=== PATIENT | female | born 1980 | race Caucasian/White ===

== ENCOUNTER 2016-11-11 15:04 | Emergency (ER) | payer OTHER ==
--- NOTE | 2016-11-11 16:30 | ED ORDER SUMMARY ---
..... Patient: ANDRZEJ DUMONT OrderSheet [facility] VisitID: [id number] [address] [place] [address] 36y, F Registration Date/Time: 11/11/2016 ORDER SHEET Weight: 81.6 kg Allergies: Erythromycin, Penicillins, Reglan, Sulfa Drugs, Tylenol GENERAL ORDERS: MEDICATION ORDERS: IV FLUIDS: Toradol IV 30 mg (NOW) (15:41 11/11/2016 HBivens A.R.N.P.) (Ack 15:43 KPage-Kuchan R.N.) (15:53 KPage-Kuchan R.N.) Dilaudid IV 2 mg (HIGH ALERT MEDICATION, NOW) (15:41 11/11/2016 HBivens A.R.N.P.) (Ack 15:43 KPage-Kuchan R.N.) (15:53 KPage-Kuchan R.N.) Zofran IV 4 mg (NOW) (15:41 11/11/2016 HBivens A.R.N.P.) (Ack 15:43 KPage-Kuchan R.N.) (15:53 KPage-Kuchan R.N.) ORDER SHEET NOTES: [Electronically signed by Sophie White A.R.N.P. (18:47 11/11/2016)] [Electronically signed by Martha KearneyNJenn (20:41 11/11/2016)] [Electronically locked/signed by Martha Kearney R.N. (20:41 11/11/2016)]
--- NOTE | 2016-11-11 16:30 | ED CLINICAL REPORT ---
Clinical Report - Physicians/Mid Levels [facility] [address] [place] [address] 11/11/2016 15:06 Patient: ANDRZEJ DUMONT Time Seen: 15:24; initial patient contact, initial documentation, patient care assumed. Arrived- By private vehicle. Historian- patient. HISTORY OF PRESENT ILLNESS Chief Complaint: FLANK PAIN. At its maximum, severity described as severe. When seen in the E.D., severity described as severe. Modifying factors. Not worsened by anything. Not relieved by anything. It is described as "pain" and it is described as located in the right flank and the left flank and radiating to the abdomen. This started about 3 days ago and is still present. No nausea, loss of appetite, vomiting or diarrhea. No additional abdominal pain. No recent travel. Similar symptoms previously: Recent medical care: The patient was seen recently in a clinic. ( went to [facility] Saturday, labs and ct done, dx with multiple stones on both sides, given flomax and vicoden, took vicoden and it lowered her pain from 10 to 8, but she is still really hurting so she came here). REVIEW OF SYSTEMS No constipation, black stools, hematemesis, difficulty with urination or pain with urination. No urinary frequency, bloody stools, fever, chest pain or difficulty breathing. Denies current . All systems otherwise negative, except as recorded above. PAST HISTORY See nurses notes. PROBLEMS: Nephrolithiasis. Hypokalemia. Ovarian Cyst. Abdominal Pain. Mechanism of Injury. Lifestyle / Substance Problems. Immunizations. . --15:15 Martha Kearney, R.N. ADDITIONAL SURGERIES: Appendectomy. Dental Surgery. Kidney stents. Lithotripsy. Renal Stone Manipulation. Tonsillectomy. --15:15 Martha Kearney, R.Valentine. SOCIAL HISTORY Light tobacco smoker. History of drug use: narcotics. Is a recovering addict. No alcohol use. No recent travel. Is a local resident. FAMILY HISTORY Negative. ADDITIONAL NOTES The nursing notes have been reviewed with agreement regarding the chief complaint, HPI, ROS, PMH and patient medications and allergies. PHYSICAL EXAM Vital Signs: 11/11/2016 15:11 BP: 123/71. HR: 108. RR: 17. O2 saturation: 100%. Temp: 98.1 F. Pain level now: 12/03. Have been reviewed as abnormal and appear to be correct. Blood pressure normal. Tachycardic. Respiratory rate normal. Temperature normal. Oxygen saturation normal. Appearance: Alert. Oriented X3. No acute distress. Eyes: Pupils equal, round and reactive to light. Eyes normal inspection. Neck: Normal inspection. Neck supple. CVS: Normal heart rate and rhythm. Heart sounds normal. Pulses normal. Respiratory: No respiratory distress. Breath sounds normal. Chest nontender. Abdomen: Soft and nontender. Bowel sounds normal. No organomegaly. No mass. Back: Abnormal inspection. Mild CVA tenderness on the right and left. Skin: Skin warm and dry. Normal skin color. No rash. Normal skin turgor. Extremities: Extremities exhibit normal ROM. No lower extremity edema. Neuro: Oriented X 3. No motor deficit. No sensory deficit. PROGRESS AND PROCEDURES Course of Care: pt pulled up her ct results and chart from [facility] on her phone, tx options discussed, agreed to give pain meds now, change vicoden rx to percocet, pt warned of taking them together, said in past the med that calmed her bladder down and changed her urine dark orange, helped, but they didn't give it to her this time, explained that was same as otc AZO, pt has pending appt tomorrow or next day with Urology, supposed to call clinic in morning for appt pt admits her substance abuse issues were to narcotic pain meds, years ago. Patient counseled in person regarding the patient's stable condition and diagnosis. Differential Diagnosis: Other possible considerations: substance abuse, kidney stones, pyelo, uti, renal disease. Above considerations are based on history and physical exam. Differential diagnosis was discussed with patient. Disposition: Discharged home in good and improved condition (16:07). Condition: good and stable. CLINICAL IMPRESSION Ureterolithiasis (multiple stones) in the right kidney and left kidney with renal colic. No hydronephrosis, acute pyelonephritis, urinary tract infection or hematuria. INSTRUCTIONS Drink plenty of fluids for the next 24 hours until better. (over the counter vitamin c, as discussed). Warnings: CONTROLLED SUBSTANCE WARNINGS: The reason for controlled substance is related to an acute illness. Reviewed the risks and benefits of the medication. Discussed warnings with the patient (Do NOT mix Vicoden with Percocet, as discussed). GENERAL WARNINGS: Return or contact your physician immediately if your condition worsens or changes unexpectedly, if not improving as expected, or if other problems arise. SPECIFICALLY, return if you develop pain in the abdomen or pelvis, fever, the inability to keep fluids down, blood in vomitus, blood in diarrhea, fainting or lightheadedness. Prescription Medications: Zofran 4 mg: Take 1 orally every six hours as needed for nausea/vomiting. Dispense ten (10). No refills. Substitution is permissible. Percocet 5 mg/325 mg: take 1 tablet orally every 6 hours as needed for pain. Dispense fifteen (15). No refills. Substitution is permissible. Toradol 10 mg tablets: Take 1 tablet orally every 6 hours as needed. Dispense fifteen (15). No refills. Substitution is permissible. Pyridium 200 mg: take 1 orally every 8 hours as needed for urinary problems. Dispense six (6). No refills. Substitution is permissible. Follow-up: Follow up with your doctor tomorrow as scheduled even if well. Summary of care provided to patient. Understanding of the discharge instructions verbalized by patient. (Electronically signed by Sophie White A.R.N.P. 11/11/2016 18:47)
--- NOTE | 2016-11-11 16:30 | ED ORDER SUMMARY ---
..... Patient: ANDRZEJ DUMONT OrderSheet [facility] VisitID: [id number] [address] [place] [address] 36y, F Registration Date/Time: 11/11/2016 ORDER SHEET Weight: 81.6 kg Allergies: Erythromycin, Penicillins, Reglan, Sulfa Drugs, Tylenol GENERAL ORDERS: MEDICATION ORDERS: IV FLUIDS: Toradol IV 30 mg (NOW) (15:41 11/11/2016 HBivens A.R.N.P.) (Ack 15:43 KPage-Kuchan R.N.) (15:53 KPage-Kuchan R.N.) Dilaudid IV 2 mg (HIGH ALERT MEDICATION, NOW) (15:41 11/11/2016 HBivens A.R.N.P.) (Ack 15:43 KPage-Kuchan R.N.) (15:53 KPage-Kuchan R.N.) Zofran IV 4 mg (NOW) (15:41 11/11/2016 HBivens A.R.N.P.) (Ack 15:43 KPage-Kuchan R.N.) (15:53 KPage-Kuchan R.N.) ORDER SHEET NOTES: [Electronically signed by Sophie White A.R.N.P. (18:47 11/11/2016)] [Electronically signed by Martha KearneyNJenn (20:41 11/11/2016)] [Electronically locked/signed by Martha Kearney R.N. (20:41 11/11/2016)]
--- NOTE | 2016-11-11 16:30 | ED NURSING NOTES ---
Clinical Report - Nurses [facility] [address] [place] [address] 11/11/2016 15:06 Patient: ANDRZEJ DUMONT TRIAGE Triage time 15:Nov 11 2016. Chief Complaint: (pt with know bilat renal stones,c/o bilat flank pain, left greater than right "cause it comes around to the front" had CT yesterday morning, lab work on saturday, was told to go to ED if pain uncontrollable.). Alert. No acute distress. SEPSIS SCREEN: Sepsis Screen. Negative (no infection suspected/documented). --15:17 Martha Kearney R.N. 15:11 11/11/16. BP: 123/71. HR: 108. RR: 17. O2 saturation: 100%. Temp: 98.1 F. Pain level now: 12/03. --15:17 Martha Kearney R.N. Weight: 81.6 kg. Height/Length: 64 inches. BMI: 30.9. --15:13 Martha Kearney R.N. Medications Flomax Oral. --15:13 Martha Kearney R.N. DULoxetine HCl Oral. --15:14 Martha Kearney R.N. Allergies Erythromycin.(vomiting) Penicillins.(rash) Reglan. (muscle spasms) Sulfa Drugs.(rash, vomiting) Tylenol.(hives) --15:13 Martha Kearney R.N. Medication/allergy information source: the patient. --15:17 Martha Kearney R.N. History Arrived by private vehicle. Historian: patient. Accompanied by family. Primary physician (Dr [facility]). Onset. (symptoms began on saturday). Treatment DIRECTOR OF TECHNOLOGY: Took ibuprofen. (flomax, vicodin). PAST MEDICAL HX: Last normal menstrual period- uterine ablation and tubal ligation. Denies current . SOCIAL HX: Light tobacco smoker (cigarette)- less than 1/2 a pack per day. No alcohol use or drug use. No infectious disease exposure. No known contact with a sick individual. ABUSE ASSESSMENT: No report of abuse. SELF HARM ASSESSMENT: A self harm assessment was performed. The patient answered "no" to the question "Do you have thoughts of harming or killing yourself?". FALL RISK ASSESSMENT: Fall risk assessment completed. No fall risk identified. NUTRITIONAL RISK ASSESSMENT: The nutritional risk assessment revealed no deficiencies. FUNCTIONAL ASSESSMENT: Functional assessment: no impairments noted. LEARNING NEEDS ASSESSMENT: The learning needs assessment revealed no barriers. SKIN INTEGRITY ASSESSMENT: Skin integrity risk assessment completed. No skin integrity risk identified. --15:17 Martha Kearney R.N. PROBLEMS: Nephrolithiasis. Hypokalemia. Ovarian Cyst. Abdominal Pain. Mechanism of Injury. Lifestyle / Substance Problems. Immunizations. . --15:15 Martha Kearney R.N. ADDITIONAL SURGERIES: Appendectomy. Dental Surgery. Kidney stents. Lithotripsy. Renal Stone Manipulation. Tonsillectomy. --15:15 Martha Kearney R.N. Interventions ID band on patient. --15:17 Martha Kearney R.N. PHYSICAL ASSESSMENT Ambulatory to room. Patient gowned. GENERAL / NEURO / PSYCH: Alert. Oriented X 4. Appears in no acute distress. HEENT: Mucous membranes are pink. RESPIRATORY: Respirations not labored. CVS: Capillary refill less than 2 seconds. GI / : Abdomen soft and nontender. Bowel sounds within normal limits. SKIN: Skin is warm and dry. --15:17 Martha Kearney R.N. NURSING PROGRESS NOTES Monitoring of patient in place. Patient gowned. Reassurance given. Patient identifiers checked. Call light placed in reach. Side rails up x 1. Bed placed in lowest position. Brakes of bed on. Patient ready for evaluation- chart flagged. Patient waiting for evaluation. --15:17 Martha Kearney R.N. 15:18 11/11/2016 Site #1 started via IV in the left antecubital space with an 20g angiocath; one attempt. Blood drawn: rainbow set. Labeled in the presence of the patient and sent to the lab. Saline lock flushed with 10 mL saline. --15:18 Martha Kearney R.N. 15:48 11/11/2016 Toradol IVP 30 mg given. via site #1. Allergies verified and confirmed 5 rights. IV patency established. IV site checked: no pain, redness, or swelling. IV flushed thoroughly pre- and post-medication administration. IVP given by RN. --15:53 Martha Kearney R.N. 15:48 11/11/2016 Dilaudid (HYDROmorphone HCl PF) IVP 2 mg given. via site #1. Allergies verified, confirmed 5 rights and sedative warning given to the patient and patient's family. IV patency established. IV site checked: no pain, redness, or swelling. IV flushed thoroughly pre- and post-medication administration. IVP given by RN. --15:53 Martha Kearney R.N. 15:48 11/11/2016 Zofran (Ondansetron HCl) IVP 4 mg given. via site #1. Allergies verified and confirmed 5 rights. IV patency established. IV site checked: no pain, redness, or swelling. IV flushed thoroughly pre- and post-medication administration. IVP given by RN. --15:53 Martha Kearney R.N. 16:28 11/11/16. ( pt reports improvement in pain down to 3/10, pt resting quietly, waiting plans for dispo). --16:49 Martha Kearney R.N. 16:48 11/11/16. Pain level now: 3/10. --16:49 Martha Kearney R.N. DISPOSITION / DISCHARGE 17:33 11/11/2016 Site #1 removed upon discharge. Bandaid applied. --17:43 Martha Kearney R.N. Condition at departure: improved. No learning barriers present. Discharge instructions provided and reviewed with the patient and spouse. Reviewed medication(s) side effects, precautions, dosing and course information. Patient verbalized understanding. Written instructions provided in Italian. The patient was discharged by the nurse practitioner. She was discharged home and accompanied by spouse. She left the Emergency Department ambulatory and via private vehicle. Spouse driving. --17:44 Martha Kearney R.N. 17:43 11/11/16. BP: 106/55. HR: 94. RR: 17. O2 saturation: 100%. Temp: deferred. Pain level now: 09/03. --17:44 Martha Kearney R.N. Locked/Released at 11/11/2016 20:41 by Martha Kearney R.N.
--- NOTE | 2016-11-11 20:42 | ED MAR SUMMARY ---
..... Medication Administration Record [facility] [address] [place] [address] Patient: ANDRZEJ DUMONT Visit ID: [id number] 36y, F Weight: 81.6 kg Height/Length: 64 in BMI: 30.9 ALLERGIES: Erythromycin, Penicillins, Reglan, Sulfa Drugs, Tylenol Given 1511/11/2016 Martha Kearney RJennNJenn Medication Administered: TORADOL [IVP], Dose: 30 mg IVP, Site: #1 left AC. Medication Ordered: Toradol IV 30 mg (NOW). Given 15:11/11/2016 Martha Kearney R.N. Medication Administered: DILAUDID [IVP] (HYDROMORPHONE HCL PF), Dose: 2 mg IVP, Site: #1 left AC. Medication Ordered: Dilaudid IV 2 mg (HIGH ALERT MEDICATION, NOW). Given 1511/11/2016 Martha Kearney RJennN. Medication Administered: ZOFRAN [IVP] (ONDANSETRON HCL), Dose: 4 mg IVP, Site: #1 left AC. Medication Ordered: Zofran IV 4 mg (NOW).
--- NOTE | 2016-11-11 20:42 | ED MED RECONCILIATION SUMMARY ---
Patient: ANDRZEJ DUMONT Medication Reconciliation Report [facility] VisitID: [id number] [address] [place] [address] 36y, F Registration Date/Time: 11/11/2016 Weight: 81.6 kg Height/Length: 64 in. BMI: 30.9 ALLERGIES: Erythromycin, Penicillins, Reglan, Sulfa Drugs, Tylenol The patient's Home Medications are listed below: THE FOLLOWING MEDICATIONS NEED TO BE RECONCILED: DULoxetine HCl Oral Flomax Oral The source(s) of the original Home Medication information: patient The following Medications were given to the patient in the Emergency Department: Toradol [IVP] IVP 30 mg, administered: 11/11/2016 3:48:00 PM Dilaudid [IVP] IVP 2 mg, administered: 11/11/2016 3:48:00 PM Zofran [IVP] IVP 4 mg, administered: 11/11/2016 3:48:00 PM The following Medications were prescribed to the patient: Zofran 4 mg: Take 1 orally every six hours as needed for nausea/vomiting. Dispense ten (10). No refills. Substitution is permissible. -- Sophie White, A.R.N.P. Percocet 5 mg/325 mg: take 1 tablet orally every 6 hours as needed for pain. Dispense fifteen (15). No refills. Substitution is permissible. -- Sophie White, A.R.N.P. Toradol 10 mg tablets: Take 1 tablet orally every 6 hours as needed. Dispense fifteen (15). No refills. Substitution is permissible. -- Sophie White, A.R.N.P. Pyridium 200 mg: take 1 orally every 8 hours as needed for urinary problems. Dispense six (6). No refills. Substitution is permissible. -- oSphie White, A.R.N.P.
--- NOTE | 2016-11-11 20:42 | ED DISCHARGE INSTRUCTIONS ---
Patient: ANDRZEJ DUMONT General Instructions [facility] VisitID: [id number] [address] [place] [address] 36y, F Registration Date/Time: 11/11/2016 Ureterolithiasis (multiple stones) in the right kidney and left kidney with renal colic. No hydronephrosis, acute pyelonephritis, urinary tract infection or hematuria. INSTRUCTIONS Drink plenty of fluids for the next 24 hours until better. (over the counter vitamin c, as discussed). Warnings: CONTROLLED SUBSTANCE WARNINGS: The reason for controlled substance is related to an acute illness. Reviewed the risks and benefits of the medication. Discussed warnings with the patient (Do NOT mix Vicoden with Percocet, as discussed). GENERAL WARNINGS: Return or contact your physician immediately if your condition worsens or changes unexpectedly, if not improving as expected, or if other problems arise. SPECIFICALLY, return if you develop pain in the abdomen or pelvis, fever, the inability to keep fluids down, blood in vomitus, blood in diarrhea, fainting or lightheadedness. Prescription Medications: Zofran 4 mg: Take 1 orally every six hours as needed for nausea/vomiting. Dispense ten (10). No refills. Substitution is permissible. Percocet 5 mg/325 mg: take 1 tablet orally every 6 hours as needed for pain. Dispense fifteen (15). No refills. Substitution is permissible. Toradol 10 mg tablets: Take 1 tablet orally every 6 hours as needed. Dispense fifteen (15). No refills. Substitution is permissible. Pyridium 200 mg: take 1 orally every 8 hours as needed for urinary problems. Dispense six (6). No refills. Substitution is permissible. Follow-up: Follow up with your doctor tomorrow as scheduled even if well. Summary of care provided to patient. Understanding of the discharge instructions verbalized by patient. ADDITIONAL INFORMATION Kidney Stone (W/ Colic) The sharp cramping pain and nausea/vomiting that you have is due to a small stone which has formed in the kidney and is now passing down a narrow tube (ureter) on its way to your bladder. Once it reaches your bladder, the pain will stop. The stone may pass in your urine stream in one piece. [The size may be 1/16" to 1/4" (1-6mm)]. Or, the stone may also break up into leonila fragments which you may not even notice. Once you have had a kidney stone, you are at risk for developing another one in the future. Home Care: Drink plenty of fluids (at least 8 to 10 glasses of water a day). Most stones will pass on their own, but may take from a few hours to a few days. Sometimes the stone is too large to pass by itself and special methods will have to be used to remove the stone. Each time you urinate, do so in a jar. Pour the urine from the jar through the strainer and into the toilet. Continue doing this until 24 hours after your pain stops. By then, if there was a kidney stone, it should pass from your bladder. Some stones dissolve into sand-like particles and pass right through the strainer. In that case, you wont ever see a stone. Save any stone that you find in the strainer and bring it to your doctor for analysis. It may be possible to prevent certain types of stones from forming. Therefore, it is important to know what kind of stone you have. Try to stay as active as possible since this will help the stone pass. Do not stay in bed unless your pain prevents you from getting up. You may notice a red, pink or brown color to your urine. This is normal while passing a kidney stone. Follow Up with your doctor or return to this facility if the pain lasts more than 48 hours. Get Prompt Medical Attention if any of the following occur: Pain that is not controlled by the medicine given Repeated vomiting or unable to keep down fluids Weakness, dizziness or fainting Fever of 100.4F (38C) or higher, or as directed by your healthcare provider Passage of solid red or brown urine (can't see through it) or urine with lots of blood clots Unable to pass urine for 8 hours and increasing bladder pressure Ondansetron Oral disintegrating tablet What is this medicine? ONDANSETRON (on KEVIN se rafal) is used to treat nausea and vomiting caused by chemotherapy. It is also used to prevent or treat nausea and vomiting after surgery. How should I use this medicine? These tablets are made to dissolve in the mouth. Do not try to push the tablet through the foil backing. With dry hands, peel away the foil backing and gently remove the tablet. Place the tablet in the mouth and allow it to dissolve, then swallow. While you may take these tablets with water, it is not necessary to do so. Talk to your tempering kiln tender regarding the use of this medicine in children. Special care may be needed. What side effects may I notice from receiving this medicine? Side effects that you should report to your doctor or health direct care supervisor as soon as possible: allergic reactions like skin rash, itching or hives, swelling of the face, lips, or tongue breathing problems dizziness fast or irregular heartbeat feeling faint or lightheaded, falls fever and chills swelling of the hands and feet tightness in the chest Side effects that usually do not require medical attention (report to your doctor or health direct care supervisor if they continue or are bothersome): constipation or diarrhea headache What may interact with this medicine? Do not take this medicine with any of the following medications: -apomorphine -cisapride -dofetilide -dronedarone -pimozide -thioridazine -ziprasidone This medicine may also interact with the following medications: -carbamazepine -phenytoin -rifampicin -tramadol -other medicines that prolong the QT interval (cause an abnormal heart rhythm) What if I miss a dose? If you miss a dose, take it as soon as you can. If it is almost time for your next dose, take only that dose. Do not take double or extra doses. Where should I keep my medicine? Keep out of the reach of children. Store between 2 and 30 degrees C (36 and 86 degrees F). Throw away any unused medicine after the expiration date. What should I tell my health care provider before I take this medicine? They need to know if you have any of these conditions: heart disease history of irregular heartbeat liver disease low levels of magnesium or potassium in the blood an unusual or allergic reaction to ondansetron, granisetron, other medicines, foods, dyes, or preservatives or trying to get breast-feeding What should I watch for while using this medicine? Check with your doctor or health direct care supervisor as soon as you can if you have any sign of an allergic reaction. Oxycodone Hydrochloride, Acetaminophen Oral tablet What is this medicine? ACETAMINOPHEN; OXYCODONE (a set a SILVANO ronnie fen; ox i KOE done) is a pain reliever. It is used to treat mild to moderate pain. How should I use this medicine? Take this medicine by mouth with a full glass of water. Follow the directions on the prescription label. Take your medicine at regular intervals. Do not take your medicine more often than directed. Talk to your tempering kiln tender regarding the use of this medicine in children. Special care may be needed. Patients over 65 years old may have a stronger reaction and need a smaller dose. What side effects may I notice from receiving this medicine? Side effects that you should report to your doctor or health direct care supervisor as soon as possible: allergic reactions like skin rash, itching or hives, swelling of the face, lips, or tongue breathing difficulties, wheezing confusion light headedness or fainting spells severe stomach pain yellowing of the skin or the whites of the eyes Side effects that usually do not require medical attention (report to your doctor or health direct care supervisor if they continue or are bothersome): dizziness drowsiness nausea vomiting What may interact with this medicine? alcohol antihistamines barbiturates like amobarbital, butalbital, butabarbital, methohexital, pentobarbital, phenobarbital, thiopental, and secobarbital benztropine drugs for bladder problems like solifenacin, trospium, oxybutynin, tolterodine, hyoscyamine, and methscopolamine drugs for breathing problems like ipratropium and tiotropium drugs for certain stomach or intestine problems like propantheline, homatropine methylbromide, glycopyrrolate, atropine, belladonna, and dicyclomine general anesthetics like etomidate, ketamine, nitrous oxide, propofol, desflurane, enflurane, halothane, isoflurane, and sevoflurane medicines for depression, anxiety, or psychotic disturbances medicines for sleep muscle relaxants naltrexone narcotic medicines (opiates) for pain phenothiazines like perphenazine, thioridazine, chlorpromazine, mesoridazine, fluphenazine, prochlorperazine, promazine, and trifluoperazine scopolamine tramadol trihexyphenidyl What if I miss a dose? If you miss a dose, take it as soon as you can. If it is almost time for your next dose, take only that dose. Do not take double or extra doses. Where should I keep my medicine? Keep out of the reach of children. This medicine can be abused. Keep your medicine in a safe place to protect it from theft. Do not share this medicine with anyone. Selling or giving away this medicine is dangerous and against the law. Store at room temperature between 20 and 25 degrees C (68 and 77 degrees F). Keep container tightly closed. Protect from light. This medicine may cause accidental overdose and if it is taken by other adults, children, or pets. Flush any unused medicine down the toilet to reduce the chance of harm. Do not use the medicine after the expiration date. What should I tell my health care provider before I take this medicine? They need to know if you have any of these conditions: brain tumor Crohn's disease, inflammatory bowel disease, or ulcerative colitis drink more than 3 alcohol containing drinks per day drug abuse or addiction head injury heart or circulation problems kidney disease or problems going to the bathroom liver disease lung disease, asthma, or breathing problems an unusual or allergic reaction to acetaminophen, oxycodone, other opioid analgesics, other medicines, foods, dyes, or preservatives or trying to get breast-feeding What should I watch for while using this medicine? Tell your doctor or health direct care supervisor if your pain does not go away, if it gets worse, or if you have new or a different type of pain. You may develop tolerance to the medicine. Tolerance means that you will need a higher dose of the medication for pain relief. Tolerance is normal and is expected if you take this medicine for a long time. Do not suddenly stop taking your medicine because you may develop a severe reaction. Your body becomes used to the medicine. This does NOT mean you are addicted. Addiction is a behavior related to getting and using a drug for a non-medical reason. If you have pain, you have a medical reason to take pain medicine. Your doctor will tell you how much medicine to take. If your doctor wants you to stop the medicine, the dose will be slowly lowered over time to avoid any side effects. You may get drowsy or dizzy. Do not drive, use machinery, or do anything that needs mental alertness until you know how this medicine affects you. Do not stand or sit up quickly, especially if you are an older patient. This reduces the risk of dizzy or fainting spells. Alcohol may interfere with the effect of this medicine. Avoid alcoholic drinks. There are different types of narcotic medicines (opiates) for pain. If you take more than one type at the same time, you may have more side effects. Give your health care provider a list of all medicines you use. Your doctor will tell you how much medicine to take. Do not take more medicine than directed. Call emergency for help if you have problems breathing. The medicine will cause constipation. Try to have a bowel movement at least every 2 to 3 days. If you do not have a bowel movement for 3 days, call your doctor or health direct care supervisor. Do not take Tylenol (acetaminophen) or medicines that have acetaminophen with this medicine. Too much acetaminophen can be very dangerous. Many nonprescription medicines contain acetaminophen. Always read the labels carefully to avoid taking more acetaminophen. Ketorolac Tromethamine Oral tablet What is this medicine? KETOROLAC (raheel toe ROLE ak) is a non-steroidal anti-inflammatory drug (NSAID). It is used for a short while to treat moderate to severe pain, including pain after surgery. It should not be used for more than 5 days. How should I use this medicine? Take this medicine by mouth with a full glass of water. Follow the directions on the prescription label. Take your medicine at regular intervals. Do not take your medicine more often than directed. Do not take more than the recommended dose. A special MedGuide will be given to you by the pharmacist with each prescription and refill. Be sure to read this information carefully each time. Talk to your tempering kiln tender regarding the use of this medicine in children. While this drug may be prescribed for children as young as 16 years of age for selected conditions, precautions do apply. Patients over 65 years old may have a stronger reaction and need a smaller dose. What side effects may I notice from receiving this medicine? Side effects that you should report to your doctor or health direct care supervisor as soon as possible: allergic reactions like skin rash, itching or hives, swelling of the face, lips, or tongue black or tarry stools breathing problems changes in vision chest pain high blood pressure nausea or vomiting redness, blistering, peeling or loosening of the skin, including inside the mouth severe abdominal pain slurred speech or weakness on one side of the body unexplained weight gain or swelling unusual bleeding or bruising unusually weak or tired yellowing of eyes or skin Side effects that usually do not require medical attention (report to your doctor or health direct care supervisor if they continue or are bothersome): diarrhea dizziness headache heartburn What may interact with this medicine? Do not take this medicine with any of the following medications: aspirin and aspirin-like medicines cidofovir methotrexate NSAIDs, medicines for pain and inflammation, like ibuprofen or naproxen pemetrexed probenecid This medicine may also interact with the following medications: alcohol alendronate alprazolam carbamazepine cyclosporine diuretics flavocoxid fluoxetine ginkgo lithium medicines for high blood pressure like enalapril medicines that affect platelets like pentoxifylline medicines that treat or prevent blood clots like heparin, warfarin muscle relaxants phenytoin steroid medicines like prednisone or cortisone thiothixene What if I miss a dose? If you miss a dose, take it as soon as you can. If it is almost time for your next dose, take only that dose. Do not take double or extra doses. Where should I keep my medicine? Keep out of the reach of children. Store at room temperature between 20 and 25 degrees C (68 and 77 degrees F). Throw away any unused medicine after the expiration date. What should I tell my health care provider before I take this medicine? They need to know if you have any of these conditions: asthma bleeding problems like hemophilia cigarette smoker drink more than 3 alcohol containing drinks a day heart disease or circulation problems such as heart failure or leg edema (fluid retention) high blood pressure kidney disease liver disease stomach bleeding or ulcers an unusual or allergic reaction to ketorolac, aspirin, other NSAIDs, other medicines, foods, dyes, or preservatives or trying to get breast-feeding What should I watch for while using this medicine? Tell your doctor or health direct care supervisor if your pain does not get better. Talk to your doctor before taking another medicine for pain. Do not treat yourself. This medicine does not prevent heart attack or stroke. In fact, this medicine may increase the chance of a heart attack or stroke. The chance may increase with longer use of this medicine and in people who have heart disease. If you take aspirin to prevent heart attack or stroke, talk with your doctor or health direct care supervisor. Do not take medicines such as ibuprofen and naproxen with this medicine. Side effects such as stomach upset, nausea, or ulcers may be more likely to occur. Many medicines available without a prescription should not be taken with this medicine. This medicine can cause ulcers and bleeding in the stomach and intestines at any time during treatment. Do not smoke cigarettes or drink alcohol. These increase irritation to your stomach and can make it more susceptible to damage from this medicine. Ulcers and bleeding can happen without warning symptoms and can cause . You may get drowsy or dizzy. Do not drive, use machinery, or do anything that needs mental alertness until you know how this medicine affects you. Do not stand or sit up quickly, especially if you are an older patient. This reduces the risk of dizzy or fainting spells. This medicine can cause you to bleed more easily. Try to avoid damage to your teeth and gums when you brush or floss your teeth. Phenazopyridine Hydrochloride Oral tablet What is this medicine? PHENAZOPYRIDINE (fen az oh PEER maude jose) is a pain reliever. It is used to stop the pain, burning, or discomfort caused by infection or irritation of the urinary tract. This medicine is not an antibiotic. It will not cure a urinary tract infection. How should I use this medicine? Take this medicine by mouth with a glass of water. Follow the directions on the prescription label. Take after meals. Take your doses at regular intervals. Do not take your medicine more often than directed. Do not skip doses or stop your medicine early even if you feel better. Do not stop taking except on your doctor's advice. Talk to your tempering kiln tender regarding the use of this medicine in children. Special care may be needed. What side effects may I notice from receiving this medicine? Side effects that you should report to your doctor or health direct care supervisor as soon as possible: allergic reactions like skin rash, itching or hives, swelling of the face, lips, or tongue blue or purple color of the skin difficulty breathing fever less urine unusual bleeding, bruising unusual tired, weak vomiting yellowing of the eyes or skin Side effects that usually do not require medical attention (report to your doctor or health direct care supervisor if they continue or are bothersome): dark urine headache stomach upset What may interact with this medicine? Interactions are not expected. What if I miss a dose? If you miss a dose, take it as soon as you can. If it is almost time for your next dose, take only that dose. Do not take double or extra doses. Where should I keep my medicine? Keep out of the reach of children. Store at room temperature between 15 and 30 degrees C (59 and 86 degrees F). Protect from light and moisture. Throw away any unused medicine after the expiration date. What should I tell my health care provider before I take this medicine? They need to know if you have any of these conditions: [id number] dehydrogenase (G6PD) deficiency kidney disease an unusual or allergic reaction to phenazopyridine, other medicines, foods, dyes, or preservatives or trying to get breast-feeding What should I watch for while using this medicine? Tell your doctor or health direct care supervisor if your symptoms do not improve or if they get worse. This medicine colors body fluids red. This effect is harmless and will go away after you are done taking the medicine. It will change urine to an dark orange or red color. The red color may stain clothing. Soft contact lenses may become permanently stained. It is best not to wear soft contact lenses while taking this medicine. If you are diabetic you may get a false positive result for sugar in your urine. Talk to your health care provider. You have been given the following additional information: Kidney Stone W/ Colic Ondansetron Oral disintegrating tablet Oxycodone Hydrochloride, Acetaminophen Oral tablet Ketorolac Tromethamine Oral tablet Phenazopyridine Hydrochloride Oral tablet (Electronically signed by Sophie White A.R.N.P. 11/11/2016 18:47)
--- NOTE | 2016-11-11 20:42 | ED MAR SUMMARY ---
..... Medication Administration Record [facility] [address] [place] [address] Patient: ANDRZEJ DUMONT Visit ID: [id number] 36y, F Weight: 81.6 kg Height/Length: 64 in BMI: 30.9 ALLERGIES: Erythromycin, Penicillins, Reglan, Sulfa Drugs, Tylenol Given 1511/11/2016 Martha Kearney RJennNJenn Medication Administered: TORADOL [IVP], Dose: 30 mg IVP, Site: #1 left AC. Medication Ordered: Toradol IV 30 mg (NOW). Given 15:11/11/2016 Martha Kearney R.N. Medication Administered: DILAUDID [IVP] (HYDROMORPHONE HCL PF), Dose: 2 mg IVP, Site: #1 left AC. Medication Ordered: Dilaudid IV 2 mg (HIGH ALERT MEDICATION, NOW). Given 1511/11/2016 Martha Kearney RJennN. Medication Administered: ZOFRAN [IVP] (ONDANSETRON HCL), Dose: 4 mg IVP, Site: #1 left AC. Medication Ordered: Zofran IV 4 mg (NOW).
--- NOTE | 2016-11-11 20:42 | ED MED RECONCILIATION SUMMARY ---
Patient: ANDRZEJ DUMONT Medication Reconciliation Report [facility] VisitID: [id number] [address] [place] [address] 36y, F Registration Date/Time: 11/11/2016 Weight: 81.6 kg Height/Length: 64 in. BMI: 30.9 ALLERGIES: Erythromycin, Penicillins, Reglan, Sulfa Drugs, Tylenol The patient's Home Medications are listed below: THE FOLLOWING MEDICATIONS NEED TO BE RECONCILED: DULoxetine HCl Oral Flomax Oral The source(s) of the original Home Medication information: patient The following Medications were given to the patient in the Emergency Department: Toradol [IVP] IVP 30 mg, administered: 11/11/2016 3:48:00 PM Dilaudid [IVP] IVP 2 mg, administered: 11/11/2016 3:48:00 PM Zofran [IVP] IVP 4 mg, administered: 11/11/2016 3:48:00 PM The following Medications were prescribed to the patient: Zofran 4 mg: Take 1 orally every six hours as needed for nausea/vomiting. Dispense ten (10). No refills. Substitution is permissible. -- Sophie White, A.R.N.P. Percocet 5 mg/325 mg: take 1 tablet orally every 6 hours as needed for pain. Dispense fifteen (15). No refills. Substitution is permissible. -- Sophie White, A.R.N.P. Toradol 10 mg tablets: Take 1 tablet orally every 6 hours as needed. Dispense fifteen (15). No refills. Substitution is permissible. -- Sophie White, A.R.N.P. Pyridium 200 mg: take 1 orally every 8 hours as needed for urinary problems. Dispense six (6). No refills. Substitution is permissible. -- Sophie White, A.R.N.P.
== END 2016-11-11 17:24 | disposition home or self-care (01) ==
LOC: ED SRH 15:04
DX: N20.2 Calculus of kidney with calculus of ureter (principal); Z88.0 Allergy status to penicillin; Z88.2 Allergy status to sulfonamides; Z88.6 Allergy status to analgesic agent; Z88.8 Allergy status to other drugs, medicaments and biological substances; Z72.0 Tobacco use; Z79.899 Other long term (current) drug therapy